=== PATIENT | female | born 1950 | race Two or more races ===

== ENCOUNTER 2016-10-27 10:16 | Observation (INO) | payer OTHER ==
[~2016-10-27] VITALS: Ht 152.4 cm; Wt 50.1 kg
[~2016-10-27 10:16] MED LIST: CIPR500T4 PO; IBUP400T22 PO; MECL25TA2 PO
[2016-10-27 11:01] VITALS: Ht 152.4 cm; Wt 50.1 kg
[2016-10-27] MEDS ORDERED: SOD CHLORIDE 0.9% 1,000 ML IV STA (12:20)
[2016-10-27 12:46] LABS: BASOPHILS % 0.7 % (0.0-2.0); EOSINOPHILS # 0.2 10^3/ul (0.0-0.5); EOSINOPHILS % 2.9 % (0.0-7.0); HEMATOCRIT 37.2 % (37.0-47.0); HEMOGLOBIN 12.3 g/dl (12.0-16.0); LYMPHOCYTES # 2.1 10^3/ul (0.8-2.9); MEAN CORPUSCULAR HGB CONC 33.1 g/dl (32.0-37.0); MEAN CORPUSCULAR VOLUME 93.7 fl (82.0-101.0); MEAN PLATELET VOLUME 10.6 fl (7.4-10.4); MONOCYTE # 0.5 10^3/ul (0.3-0.9); MONOCYTES % 7.8 % (0.0-11.0); NEUTROPHILS % 51.4 % (39.0-77.0); PLATELET COUNT 210 10^3/UL (140-415); RED BLOOD COUNT 3.97 10^6/ul (4.20-5.40); RED CELL DISTRIBUTION WIDTH 13.4 % (11.5-14.5); WHITE BLOOD COUNT 5.8 10^3/ul (4.8-10.8)
[2016-10-27 12:54] LABS: ADD UMIC YES; UR ASCORBIC ACID NEGATIVE (NEGATIVE); UR BILIRUBIN (Dip) NEGATIVE (NEGATIVE); UR BLOOD (Dip) 2+ mg/dL (NEGATIVE); UR CLARITY CLEAR (CLEAR); UR COLOR COLORLESS (YELLOW); UR GLUCOSE (Dip) NEGATIVE (NEGATIVE); UR KETONES (Dip) NEGATIVE (NEGATIVE); UR LEUKOCYTE ESTERASE (Dip) NEGATIVE Leu/ul (NEGATIVE); UR NITRITE (Dip) NEGATIVE (NEGATIVE); UR RBC 0 /HPF (0-5); UR SPECIFIC GRAVITY (Dip) 1.004 (1.003-1.030); UR TOTAL PROTEIN (Dip) NEGATIVE (NEGATIVE); UR UROBILINOGEN (Dip) NEGATIVE (NEGATIVE)
[2016-10-27 13:08] LABS: INR 0.92; PROTIME 12.4 Sec (12.2-14.2)
[2016-10-27 13:09] LABS: PARTIAL THROMBOPLASTIN TIME 28.3 Sec (25.0-35.0)
[2016-10-27 13:14] LABS: ALANINE AMINOTRANSFERASE 29 IU/L (13-69); ALBUMIN/GLOBULIN RATIO 1.25; ALKALINE PHOSPHATASE 62 IU/L (42-121); ANION GAP 8 (8-16); ASPARTATE AMINO TRANSFERASE 29 IU/L (15-46); BILIRUBIN,INDIRECT 0.2 mg/dl (0-1.1); BILIRUBIN,TOTAL 0.2 mg/dl (0.2-1.3); BLOOD UREA NITROGEN 14 mg/dl (7-20); CALCIUM 9.7 mg/dl (8.4-10.2); CARBON DIOXIDE 31 mmol/L (21-31); CHLORIDE 105 mmol/L (97-110); CREATININE 0.62 mg/dl (0.44-1.00); GLUCOSE 95 mg/dl (70-220); POTASSIUM 3.9 mmol/L (3.5-5.1); SODIUM 140 mmol/L (135-144); TOTAL PROTEIN 7.2 g/dl (6.1-8.1)
[2016-10-27 13:25] LABS: TROPONIN-I < 0.012 ng/ml (0.00-0.12)
--- NOTE | 2016-10-27 13:34 | RADRPT ---
PROCEDURE: XR Chest. CLINICAL INDICATION: Stroke. TECHNIQUE: XR Chest 1 View COMPARISON: None available. FINDINGS: The lungs are clear. No focal opacification is seen. Nipple shadows are noted. No pneumothorax or pleural effusion is seen. The cardiomediastinal silhouette is unremarkable. The osseous structu res are grossly unremarkable. IMPRESSION: No evidence of acute cardiopulmonary disease. RPTAT: JJ .Jv Christina MD, MD Date Time Electronically viewed and signed by .Jv Christina MD, MD on 10/27/2016 13:34 .A/
--- NOTE | 2016-10-27 16:39 | RADRPT ---
PROCEDURE: CT Brain without contrast. CLINICAL INDICATION: Memory loss. TECHNIQUE: A CT of the brain was performed on a multidetector CT scanner utilizing axial sections from the skull base through the vertex without contrast. Images were reviewed on a high-resolution [employer] workstation. Exam CTDI = 44.99 mGy and the DLP = 630.20 mGy-cm. One or more of the following dose reduction techniques were used: Automated exposure control Adjustment of the mA and/or kV according to patient size. Use of iterative reconstruction technique. COMPARISON: Head CT 10/12/2015 FINDINGS: There is no evidence of intracranial hemorrhage, mass effect or midline shift. Punctate parenchymal calcifications are seen in the medial right occipital lobe unchanged. No abnormal intra-axial or ext ra-axial fluid collections are seen. The density of the brain is normal and the arredondo/white matter d ifferentiation is well preserved. The osseous structures are unremarkable. The paranasal sinuses a re clear. Scattered vascular calcifications are present in the anterior circulation arteries. IMPRESSION: 1. No intracranial hemorrhage, mass effect or midline shift. 2. Unchanged punctate parenchymal calcifications in the medial right occipital lobe. 3. Minimal intracranial atherosclerosis. RPTAT: BB .Justine Zhou MD, MD Date Time Electronically viewed and signed by .Justine Zhou MD, on 10/27/2016 16:38 .O/
[2016-10-27 18:30] VITALS: TEMP 97.2
[2016-10-27] MEDS ORDERED: SOD CHLORIDE 0.9% 1,000 ML IV SCH (19:05)
--- NOTE | 2016-10-27 19:05 | ERA ---
ER Documentation Chief Complaint Date/Time DATE: 10/27/16 TIME: 18:58 Chief Complaint pt is confused; pt doesn't remember events of this morning HPI This is a 66-year-old female who is here for amnesia. The patient states she has no recollection of this morning events at all. She says she went to her employer's house and then suddenly realized she remembered nothing about how she got there or the entire days events. Patient has a dull mild headache is diffuse. Denies any recent trauma fever no chest pain shortness of breath cough dysuria, no focal neurological complaints such as numbness or weakness no speech or visual change. No history of seizure disorder. I called and spoke with the employer he stated that the patient showed up this morning for work and seemed okay until she came to her and complaining of having amnesia about this morning. They put her in a car to take her home but the patient requested to go to the hospital instead. ROS All systems reviewed and are negative except as per history of present illness. Medications Home Meds Discontinued Scripts Ciprofloxacin Hcl* (Ciprofloxacin Hcl*) 500 Mg Tablet, 500 MG PO BID for 7 Days , #14 TAB 0 Refills Prov:ALEXSANDRA SWEENEY PA-C 10/12/15 Meclizine Hcl* (Antivert*) 25 Mg Tablet, 25 MG PO Q8H Y for DIZZINESS for 10 Days, #30 TAB 0 Refills Prov:ALEXSANDRA SWEENEY PA-C 10/12/15 Ibuprofen* (Motrin*) 400 Mg Tab, 400 MG PO Q6 for 7 Days, #30 TAB 0 Refills Prov:ALEXSANDRA SWEENEY PA-C 10/12/15 Allergies Allergies: Coded Allergies: No Known Allergy (Unverified , 10/12/15) PMhx/Soc History of Surgery: Yes (HYSTERECTOMY) Anesthesia Reaction: No Hx Neurological Disorder: No Hx Respiratory Disorders: No Hx Cardiac Disorders: No Hx Psychiatric Problems: No Hx Miscellaneous Medical Probl: Yes (GASTRITIS) Hx Alcohol Use: No Hx Substance Use: No Hx Tobacco Use: No Smoking Status: Never smoker FmHx Family History: No coronary disease Physical Exam Vitals Vital Signs Date Time Temp Pulse Resp B/P Pulse Ox O2 Delivery O2 Flow Rate FiO2 10/27/16 11:01 97.7 60 18 163/73 99 Physical Exam Const: Well-developed, well-nourished Head: Atraumatic, normocephalic Eyes: Normal Conjunctiva, PERRLA, EOMI, normal sclera, no nystagmus ENT: Normal External Ears, Nose and Mouth, moist mucus membranes. Neck: Full range of motion. No meningismus, no lymphadenopathy. Resp: Clear to auscultation bilaterally, no wheezing, rhonchi, rales Cardio: Regular rate and rhythm, no murmurs, S1 S2 present Abd: Soft, non tender x 4, non distended. Normal bowel sounds, no guarding or rebound, no pulsitile abdominal masses or bruits Skin: No petechiae or rashes, no ecchymosis , no maculopapular rash Back: No midline or flank tenderness Ext: No cyanosis, or edema, FROM x 4, normal inspection, neurovascularly intact x 4 Neur: Amnestic to today's events awake and alert, STR 5/5 x 4, sensation intact x 4, no focal findings, cerebellum intact Psych: Normal Mood and Affect Result Diagram: 10/27/16 1235 10/27/16 1235 Results 24 hrs Laboratory Tests Test 10/27/16 12:35 White Blood Count 5.810^3/ul Red Blood Count 3.9710^6/ul Hemoglobin 12.3g/dl Hematocrit 37.2% Mean Corpuscular Volume 93.7fl Mean Corpuscular Hemoglobin 31.0pg Mean Corpuscular Hemoglobin Concent 33.1g/dl Red Cell Distribution Width 13.4% Platelet Count 55591^3/UL Mean Platelet Volume 10.6fl Neutrophils % 51.4% Lymphocytes % 37.0% Monocytes % 7.8% Eosinophils % 2.9% Basophils % 0.7% Nucleated Red Blood Cells % 0.0/100WBC Neutrophils # (Manual) 3.010^3/ul Lymphocytes # 2.110^3/ul Monocytes # 0.510^3/ul Eosinophils # 0.210^3/ul Basophils # 0.010^3/ul Nucleated Red Blood Cells # 0.010^3/ul Prothrombin Time 12.4Sec Prothrombin Time Ratio 1.0 INR International Normalized Ratio 0.92 Activated Partial Thromboplast Time 28.3Sec Urine Color COLORLESS Urine Clarity CLEAR Urine pH 9.0 Urine Specific [place] 1.004 Urine Ketones NEGATIVEmg/dL Urine Nitrite NEGATIVEmg/dL Urine Bilirubin NEGATIVEmg/dL Urine Urobilinogen NEGATIVEmg/dL Urine Leukocyte Esterase NEGATIVELeu/ul Urine Microscopic RBC 0/HPF Urine Microscopic WBC 0/HPF Urine Hemoglobin 2+mg/dL Urine Glucose NEGATIVEmg/dL Urine Total Protein NEGATIVEmg/dl Sodium Level 140mmol/L Potassium Level 3.9mmol/L Chloride Level 105mmol/L Carbon Dioxide Level 31mmol/L Anion Gap 8 Blood Urea Nitrogen 14mg/dl Creatinine 0.62mg/dl Glucose Level 95mg/dl Calcium Level 9.7mg/dl Total Bilirubin 0.2mg/dl Direct Bilirubin 0.00mg/dl Indirect Bilirubin 0.2mg/dl Aspartate Amino Transf (AST/SGOT) 29IU/L Alanine Aminotransferase (ALT/SGPT) 29IU/L Alkaline Phosphatase 62IU/L Troponin I < 0.012ng/ml Total Protein 7.2g/dl Albumin 4.0g/dl Globulin 3.20g/dl Albumin/Globulin Ratio 1.25 Current Medications Medications (Trade) Dose Ordered Sig/Amira Route PRN Reason Start Time Stop Time Status Last Admin Dose Admin Sodium Chloride (NS) 1,000 ml @ 1,000 mls/hr Q1H STAT IV 10/27/16 12:20 10/27/16 13:19 DC 10/27/16 13:11 Procedures/MDM PROCEDURE: CT Brain without contrast. CLINICAL INDICATION: Memory loss. TECHNIQUE: A CT of the brain was performed on a multidetector CT scanner utilizing axial sections from the skull base through the vertex without contrast. Images were reviewed on a high-resolution PACS workstation. Exam CTDI = 44.99 mGy and the DLP = 630.20 mGy-cm. One or more of the following dose reduction techniques were used: Automated exposure control Adjustment of the mA and/or kV according to patient size. Use of iterative reconstruction technique. COMPARISON: Head CT 10/12/2015 FINDINGS: There is no evidence of intracranial hemorrhage, mass effect or midline shift. Punctate parenchymal calcifications are seen in the medial right occipital lobe unchanged. No abnormal intra-axial or extra-axial fluid collections are seen. The density of the brain is normal and the arredondo/white matter differentiation is well preserved. The osseous structures are unremarkable. The paranasal sinuses are clear. Scattered vascular calcifications are present in the anterior circulation arteries. IMPRESSION: 1. No intracranial hemorrhage, mass effect or midline shift. 2. Unchanged punctate parenchymal calcifications in the medial right occipital lobe. 3. Minimal intracranial atherosclerosis. RPTAT: BB .Justine Zhou MD, Date Time Electronically viewed and signed by .Justine Zhou MD, on 10/27/2016 16:38 .O/ CC: DESIRAE MACIAS DO PROCEDURE: XR Chest. CLINICAL INDICATION: Stroke. TECHNIQUE: XR Chest 1 View COMPARISON: None available. FINDINGS: The lungs are clear. No focal opacification is seen. Nipple shadows are noted. No pneumothorax or pleural effusion is seen. The cardiomediastinal silhouette is unremarkable. The osseous structures are grossly unremarkable. IMPRESSION: No evidence of acute cardiopulmonary disease. RPTAT: JJ .Jv Christina MD, Date Time Electronically viewed and signed by .Jv Christina MD, on 10/27/2016 13:34 .A/ CC: DESIRAE MACIAS DO EKG: Rate/Rhythm: Sinus bradycardia QRS, ST, QT: NORMAL KS, QRS, QT] Impression: Sinus bradycardia .Juan Francisco with the patient's primary care physician. Will admit to the hospital for MRI of brain and ultrasound of neck We will admit to Dr. capri Bartholomew Diagnosis: Primary Impression: Amnesia Condition: Stable DESIRAE MACIAS DO Oct 27, 2016 19:04
[2016-10-27] MEDS ORDERED: ONDANSETRON 4 MG INJ IV PRN ×2 (19:30→20:30)
[2016-10-27] MEDS ORDERED: ACETAMINOPHEN 325 MG TAB PO PRN ×2 (19:30→20:30)
[2016-10-27] MEDS ORDERED: SODIUM CHLORIDE 0.9% 1L BAG IV ONE (20:30)
[2016-10-27] MEDS ORDERED: NACL 0.9% 3 ML SYG IV SCH (20:30)
[2016-10-27] MEDS ORDERED: ZOLPIDEM 5 MG TAB PO PRN (20:30)
[2016-10-27] MEDS ORDERED: DOCUSATE SODIUM 100 MG CAP PO PRN (20:30)
[2016-10-27] MEDS ORDERED: HYDROCODONE/APAP (5/325) TAB PO PRN (20:30)
[2016-10-27 21:25] VITALS: BMI 21.6
[2016-10-27 21:30] VITALS: BP 161/70; PULSE 58; RESP 18
[2016-10-27] MEDS: FAMOTIDINE 20 MG TAB PO SCH (21:49)
--- NOTE | 2016-10-27 22:25 | RADRPT ---
PROCEDURE: US Carotids. CLINICAL INDICATION: TIA. TECHNIQUE: Multiple sonographic of the carotid arteries were obtained utilizing arredondo scale imaging . Color and Doppler imaging was performed. The images were reviewed on a PACS workstation. COMPARISON: No prior studies are available for comparison. FINDINGS: Location:RightLeft CCA52.0 cm/sec62.6 cm/sec Prox ICA44.7 cm/sec37.2 cm/sec Mid ICA40.1 cm/sec48.2 cm/sec Dist ICA63.3 cm/sec57.6 cm/sec ECA34.5 cm/sec57.6 cm/sec ICA/CCA:1.2 0.9 Antegrade flow is seen within the vertebral arteries bilaterally. No significant plaque is seen with in the carotid system bilaterally. IMPRESSION: 1. No hemodynamically significant stenosis in the cervical carotid arteries. 2. Antegrade flow in both vertebral arteries. Note: Ultrasound velocity criteria are extrapolated from diameter data as defined by the Society of Radiologists in Ultrasound Consensus Conference Radiology 2003; 229;340-346. This study indirectly r eferences the measurement of the distal ICA diameter as the denominator for stenosis measurement. RPTAT: HTAR .Geraldo Nolasco MD, Date Time Electronically viewed and signed by .Geraldo Nolasco MD, on 10/27/2016 22:24 .R/
[2016-10-28 02:18] VITALS: BP 104/56; RESP 18
[2016-10-28 06:42] LABS: CHOL/HDL RATIO 2.3 RATIO
[2016-10-28] MEDS: ENOXAPARIN 40 MG/0.4 ML SYG SC SCH (08:14)
[2016-10-28 08:23] VITALS: BP 134/61; RESP 16
--- NOTE | 2016-10-28 11:34 | RADRPT ---
PROCEDURE: MRI Brain without contrast. CLINICAL INDICATION: Amnesia, evaluate for stroke TECHNIQUE: Multiplanar MRI of the brain without contrast was performed on a 3.0 T scanner with the following sequences obtained: T1-weighted, T2-weighted/FLAIR, diffusion weighted (with ADC map), GR E. COMPARISON: CT brain 10/27/2016 FINDINGS: No acute/recent ischemic infarction or intracranial hemorrhage / blood degradation products are iden tified. No extra-axial fluid collection is seen. There is no mass effect. No midline shift is identified. The ventricles and sulci are within normal limits for size and configuration. Minimal scattered areas of increased T2 / FLAIR signal intensity are present in the periventricular - deep white matter which are nonspecific but likely reflect chronic small vessel ischemic changes. A punctate focus of susceptibility in the right occipital lobe peripherally corresponds to the calci fication demonstrated on CT. Flow voids are identified in the proximal intracranial arteries and dural sinuses suggesting patency . The mastoid air cells and paranasal sinuses are grossly clear. IMPRESSION: 1. No evidence of acute intracranial pathology. 2. Minimal chronic small vessel ischemic changes. 3. 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 RPTAT: VV .Vadim Ruiz MD, Date Time Electronically viewed and signed by .Vadim Ruiz MD, on 10/28/2016 11:34 .O/
[2016-10-28 14:00] VITALS: BP 107/54; RESP 16
[2016-10-28 20:28] VITALS: BP 120/58; RESP 16
[2016-10-28] MEDS: FAMOTIDINE 20 MG TAB PO SCH (21:31)
--- NOTE | 2016-10-28 23:43 | QN ---
Documentation Comment [id number] JOSE ROJO MD Oct 28, 2016 23:43
[2016-10-29 02:20] VITALS: BP 105/51; RESP 16
--- NOTE | 2016-10-29 07:29 | HP ---
DATE OF ADMISSION: 10/27/2016 HISTORY OF PRESENT ILLNESS: The patient with no significant past medical history. Claims that she presented to this hospital for amnesia. Patient has no recollection this morning of events at all and she went to her employer's house and then suddenly remembers nothing about how she got there or entirety of events. Patient denies no numbness, weakness tingling. Hematocrit 37.2, hemoglobin 14. Patient had MRI of the brain, shows no evidence of acute intracranial pathology, minimal chronic small-vessel change, several calcifications, could be postinfectious . Denies any history of seizure disorder. Brain CT scan is reported as minimal intracranial atherosclerosis. Patient's chest x-ray is negative, as well as patient has . PAST MEDICAL HISTORY: Negative for diabetes, hypertension, hyperlipidemia. FAMILY HISTORY: Negative. SOCIAL HISTORY: Negative. MEDICATIONS: None. REVIEW OF SYSTEMS: HEENT: Unremarkable. RESPIRATORY: Unremarkable. GASTROINTESTINAL: Unremarkable. EXTREMITIES: Unremarkable. ADMINISTRATIVE COURT JUSTICE: Normal. No numbness, weakness, tingling as mentioned above. PHYSICAL EXAMINATION: GENERAL: Patient is awake, alert. VITAL SIGNS: Stable. HEENT: Head is atraumatic, normocephalic. Pupils equal reactive to light. NECK: Supple. No JVD. LUNGS: Clear. CVS: S1, S2 normal. ABDOMEN: Soft, nontender. Bowel sounds present. +_. No hepatosplenomegaly. No guarding or rebound. EXTREMITIES: No cyanosis, clubbing or edema. NEUROLOGIC: Patient is awake, alert. Moves all extremities. LABORATORY DATA: As mentioned above. IMPRESSION: 1. Amnesia. 2. Rule out transient ischemic attack. 3. Rule out cerebrovascular accident. 4. Rule out seizure disorder. PLAN: Continue to monitor. Patient will have neurology consultation and as per orders. Dictated By: Seth Mcintyre MD /olga/janett /Document#: [id number] TALITA
[2016-10-29 07:37] VITALS: BP 131/60; RESP 16
[2016-10-29] MEDS: ASPIRIN 325 MG TAB PO SCH (10:41)
[2016-10-29] MEDS: ENOXAPARIN 40 MG/0.4 ML SYG SC SCH (10:49)
[2016-10-29 14:00] VITALS: BP 122/60; RESP 16
--- NOTE | 2016-10-29 17:45 | PN ---
Date/Time of Note Date/Time of Note DATE: 10/29/16 TIME: 17:44 Assessment/Plan VTE Prophylaxis VTE Prophylaxis Intervention: other Lines/Catheters IV Catheter Type (from Nrsg): Saline Lock Assessment/Plan Chief Complaint/Hosp Course IMPRESSION: 1. Amnesia. 2. Rule out transient ischemic attack. 3. Rule out cerebrovascular accident. 4. Rule out seizure disorder. PLAN DR MILLER CALLED Problems: Subjective 24 Hr Interval Summary Constitutional: no complaints Respiratory: no complaints Neurologic: No confusion, No dizziness, No focal-weakness, No headache Exam/Review of Systems Vital Signs Vitals Vital Signs Date Time Temp Pulse Resp B/P Pulse Ox O2 Delivery O2 Flow Rate FiO2 10/29/16 14:00 97.4 53 16 122/60 100 10/27/16 21:30 Room Air Intake and Output 10/28/16 10/28/16 10/29/16 15:00 23:00 07:00 Intake Total 800 ml 1760 ml 480 ml Balance 800 ml 1760 ml 480 ml Exam Respiratory: clear to auscultation Cardiovascular: regular rate and rhythm Gastrointestinal: soft Musculoskeletal: nl extremities to inspection Extremities: normal pulses Results Result Diagram: 10/27/16 1235 10/27/16 1235 Medications Medications Current Medications Ondansetron HCl (Zofran Inj) 4 mg Q6H PRN IV NAUSEA AND/OR VOMITING; Start 01/31 at 20:30 Acetaminophen (Tylenol Tab) 650 mg Q6H PRN PO PAIN LEVEL 1-3 OR FEVER; Start at 20:30 Acetaminophen/ Hydrocodone Bitart (Rumsey (5/325)) 1 tab Q6H PRN PO MODERATE PAIN LEVEL 4-6; Start 10/27/16 at 20:30 Docusate Sodium (Colace) 100 mg Q12H PRN PO CONSTIPATION; Start 10/27/16 at 20: 30 Zolpidem Tartrate (Ambien) 5 mg QHS PRN PO SLEEP; Start 10/27/16 at 20:30 Famotidine (Pepcid) 20 mg Q24H PO Last administered on 10/28/16 21:31; Admin Dose 20 MG; Start 10/27/16 at 21:00 Enoxaparin Sodium (Lovenox) 40 mg DAILY SC Last administered on 10/29/16 10:49 ; Admin Dose 40 MG; Start 10/28/16 at 09:00 Aspirin (Aspirin) 325 mg DAILY PO Last administered on 10/29/16t 10:41; Admin Dose 325 MG; Start 10/29/16 at 09:00 JOSE ROJO MD Oct 29, 2016 17:45
[2016-10-29 20:20] VITALS: BP 111/54; RESP 18
--- NOTE | 2016-10-29 21:36 | RADRPT ---
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 Physician: JOSE ROJO Quality: Good Procedures: Transthoracic echocardiogram with complete 2D, M-Mode, and doppler examination. Indications: Coronary Artery Disease. 2D/M Mode Doppler Measurement Value Normal Ranges Measurement Value Normal Ranges LVIDd 2D 4.4 3.5 - 5.6 cm AI Peak PG 45.6 mmHg LVIDs 2D 2.6 2.1 - 4.1 cm AI Peak Uriel 3.4 m/sec LVPWd 2D 0.9 0.6 - 1.1 cm AI PHT 737.9 msec IVSd 2D 1.0 0.6 - 1.1 cm MV E Peak Uriel 0.7 m/sec AoR Diam 2D 2.9 2.0 - 3.7 cm MV A Peak Uriel 0.8 m/sec EDV 2D 89.8 cm3 MV E/A 1.0 ESV 2D 17.9 cm3 MV Decel Time 200 msec LA Dimen 2D 2.6 2.3 - 4.0 cm MV Decel Benson 4 MV E/A 1.0 TR Peak Uriel 2.4 m/sec TR Peak PG 22.9 mmHg RVSP 26.0 mmHg Findings Left Ventricle: Normal left ventricular systolic function. Normal left ventricular cavity size. Normal left ventricular wall thickness. Ejection fraction is visually estimated at 5560 %. Tissue Doppler/Mitral Doppler indices are consistent with impaired relaxation (Stage I diastolic dysfunction). Right Ventricle: Normal right ventricular size. Normal right ventricular systolic function. Left Atrium: The left atrium is normal in size. Right Atrium: The right atrium is normal in size. Mitral Valve: Normal appearance and function of the mitral valve with trace physiologic regurgitation. Aortic Valve: Normal appearance of the aortic valve. No significant aortic stenosis or insufficiency. Tricuspid Valve: Normal appearance of the tricuspid valve. Estimated peak PA systolic pressure 26 mmHg. There is trace tricuspid regurgitation. Pulmonic Valve: Normal pulmonic valve appearance. Pericardium: Normal pericardium with no significant pericardial effusion. Aorta: Normal aortic root. IVC: Normal size and normal respiratory collapse consistent with normal right atrial pressure. Conclusions 1.Normal left ventricular systolic function. Normal left ventricular cavity size. Normal left ventricular wall thickness. Ejection fraction is visually estimated at 55-60 %. Tissue Doppler/Mitral Doppler indices are consistent with impaired relaxation (Stage I diastolic dysfunction). 2.Normal appearance and function of the mitral valve with trace physiologic regurgitation. 3.Normal appearance of the tricuspid valve. Estimated peak PA systolic pressure 26 mmHg. There is trace tricuspid regurgitation. Electronically Signed By: Matthew Cunningham 29-Oct-2016 21:34:41 -0700 Patient Name: MONTSERRAT MILLS Study Date: 29-Oct-2016 [id number]
[2016-10-29] MEDS: FAMOTIDINE 20 MG TAB PO SCH (21:52)
[2016-10-30 02:45] VITALS: BP 97/50; RESP 16
--- NOTE | 2016-10-30 02:47 | CONS ---
DATE OF ADMISSION: 10/27/2016 DATE OF CONSULTATION: 10/29/2016 Thank you, Dr. Mcintyre, for the kind referral for evaluation of transient amnesia. The patient is a 66-year-old lady who was essentially with no past medical history, who presented to the hospital with several hours of amnesia when she could not recall how she came to work and was asking questions again and again. She was sent from work to home but instead checked herself to the hospital. According to the son, who is present at the bedside, the patient's , who was with her in the emergency room, she was asking same questions again and again, despite the fact that she was given answers. This forgetfulness and inability to retain new memories lasted for several hours. By the end of the day, even in the emergency room, she was getting better and became normal by the end of the day with no current complaints. She had similar episodes of amnestic events about 10 years ago. It also lasted less than 1 day. Both times, the patient was under stress. A day or 2 prior to the event, she went to a . In the hospital, the patient had a CAT scan followed by an MRI of the brain, which was normal. There are a few punctate calcifications seen. Ultrasound was done as well. Normal study. The patient laboratory showed a normal CBC, normal comprehensive metabolic panel, normal lipid profile, normal PT/PTT, and negative urinalysis with the exception of 2+ hemoglobin in the urine. The patient has no history of seizures, and I discussed and I asked the patient's son if she had any episodes of spacing out, staring spells, or any other episodes of decreased responsiveness, which could be is suspicious for complex partial seizures, and he denied any. SOCIAL HISTORY: No alcohol, tobacco, or drug use. FAMILY HISTORY: Noncontributory. REVIEW OF SYSTEMS: All pertinent positives included above in the history of present illness. PHYSICAL EXAMINATION: VITALS: Temperature 97.8, pulse 59, respirations 18, and blood pressure 111/54. GENERAL: Not in acute distress, lying in bed. Normocephalic and atraumatic head. No carotid bruits. No thyromegaly. LUNGS: Clear to auscultation bilaterally. HEART: Normal rhythm and sounds. ABDOMEN: Soft and nontender. EXTREMITIES: No cyanosis, clubbing, or edema. NEURO: She is awake, alert, and oriented x3 with fluent speech. Cranial nerve examination is intact. Visual young bilaterally. Pupils are round and reactive to light from 3-2 mm bilaterally. Extraocular movements are intact without nystagmus. Symmetrical face. Preserved facial strength and sensation. Tongue was in midline. Palate elevates symmetrically. Motor strength examination shows preserved strength, bulk and tone in all extremities. Sensory examination grossly intact to light touch and pain. Deep tendon reflexes 2+ throughout. Downgoing toes bilaterally. Coordination preserved on [id number] testing. No dysmetria or tremor. Gait was not assessed. The patient has no complaints of gait abnormality. IMPRESSION AND PLAN: Status post episode of transient global amnesia. Similar episode 10 years ago. I do not think the patient needs any further workup. It is a benign condition. No medications for the condition needed. The patient was placed on aspirin. I do not think she needs one unless she has any other reasons. I will defer to primary doctor to decide. Thank you much for this interesting consultation. The patient can be discharged. Dictated By: Ghulam Blevins MD /olga/jaren /Document#: [id number] TALITA
[2016-10-30 08:06] VITALS: BP 122/58; RESP 16
[2016-10-30] MEDS: ASPIRIN 325 MG TAB PO SCH (08:34)
[2016-10-30] MEDS: ENOXAPARIN 40 MG/0.4 ML SYG SC SCH (08:54)
--- NOTE | 2016-10-30 12:13 | PN ---
Date/Time of Note Date/Time of Note DATE: 10/30/16 TIME: 12: Assessment/Plan VTE Prophylaxis VTE Prophylaxis Intervention: ambulation Lines/Catheters IV Catheter Type (from Nrsg): Peripheral IV Assessment/Plan Chief Complaint/Hosp Course 1. Status post episode of transient global amnesia. 2. HX of Similar episode 10 years ago 3. MRI is grossly negative Problems: Assessment/Plan 1. discahrge Subjective 24 Hr Interval Summary Constitutional: improved, no complaints Exam/Review of Systems Vital Signs Vitals Vital Signs Date Time Temp Pulse Resp B/P Pulse Ox O2 Delivery O2 Flow Rate FiO2 10/30/16 08:06 97.5 62 16 122/58 100 10/27/16 21:30 Room Air Intake and Output 10/29/16 10/29/16 10/30/16 15:00 23:00 07:00 Intake Total 2040 ml 480 ml Balance 2040 ml 480 ml Exam Constitutional: alert, oriented Respiratory: clear to auscultation Cardiovascular: regular rate and rhythm Results Result Diagram: 10/27/16 1235 10/27/16 1235 Medications Medications Current Medications Ondansetron HCl (Zofran Inj) 4 mg Q6H PRN IV NAUSEA AND/OR VOMITING; Start 01/31 at 20:30 Acetaminophen (Tylenol Tab) 650 mg Q6H PRN PO PAIN LEVEL 1-3 OR FEVER; Start at 20:30 Acetaminophen/ Hydrocodone Bitart (Happy (5/325)) 1 tab Q6H PRN PO MODERATE PAIN LEVEL 4-6; Start 10/27/16 at 20:30 Docusate Sodium (Colace) 100 mg Q12H PRN PO CONSTIPATION; Start 10/27/16 at 20: 30 Zolpidem Tartrate (Ambien) 5 mg QHS PRN PO SLEEP; Start 10/27/16 at 20:30 Famotidine (Pepcid) 20 mg Q24H PO Last administered on 10/29/16 21:52; Admin Dose 20 MG; Start 10/27/16 at 21:00 Enoxaparin Sodium (Lovenox) 40 mg DAILY SC Last administered on 10/30/16 08:54 ; Admin Dose 40 MG; Start 10/28/16 at 09:00 Aspirin (Aspirin) 325 mg DAILY PO Last administered on 10/30/16 08:34; Admin Dose 325 MG; Start 10/29/16 at 09:00 JAYJAY HERNANDEZ Oct 30, 2016 12:13
--- NOTE | 2016-10-30 12:16 | PDOCDIS ---
Discharge Instructions DIAGNOSIS Discharge Diagnosis Status post episode of transient global amnesia. CONDITION Patient Condition: Good HOME CARE INSTRUCTIONS: Diet Instructions: Low Fat /CholesterolSpecial Diet: low cholesterol, low fat diet ACTIVITY: Activity Restrictions: No Restrictions FOLLOW UP/APPOINTMENTS Follow-up Plan PCP 1 week SCHOOL/WORK RELEASE May return to School/Work with: No Restrictions JAYJAY HERNANDEZ Oct 30, 2016 12:16
[2016-10-30] MEDS ORDERED: ASPI325T4 PO (12:17)
== END 2016-10-30 14:00 | disposition home or self-care (01) ==
LOC: E/R 10:16 → MS2 19:06
PROVIDERS: ADMIT Internal Medicine; ATTEND Internal Medicine
DX: G45.4 Transient global amnesia (principal)
CPT/HCPCS: 70450; 70551; 71010; 80053; 80061; 81001; 83036; 84484; 85025; 85610; 85730; 93005; 93306; 93880; 96372; 99285; G0378; J1650; J7030